=== PATIENT | male | born 1995 | race Two or more races ===

== ENCOUNTER 2024-08-31 10:00 | Outpatient (CLI) | payer OTHER ==
[~2024-08-31 10:00] MED LIST: PANADOL; SYNTHROID50 MCG
== END 2024-08-31 10:02 | disposition home or self-care (01) ==
LOC: SONOGRAMA 10:00
PROVIDERS: ATTEND Pathology Anatomic Pathology & Clinical Pathology
DX: D34 Benign neoplasm of thyroid gland (principal); E06.3 Autoimmune thyroiditis; E04.2 Nontoxic multinodular goiter